=== PATIENT | female | born 1995 | race African-American/Black ===

== ENCOUNTER 2018-12-18 19:50 | Emergency (ER) | payer OTHER ==
[~2018-12-18] VITALS: Ht 154.9 cm; Wt 49.9 kg
[2018-12-18 21:37] VITALS: BP 121/92
[2018-12-18] MEDS ORDERED: methylPREDNISolone SOD SUCC 125 MG/2 ML VL IM ONE (22:15)
[2018-12-18] MEDS ORDERED: HYDROcodone-ACET 10/325MG TAB PO ONE (22:15)
[2018-12-18] MEDS ORDERED: cefTRIAXone SOD 1,000 MG VL IM ONE (22:15)
== END 2018-12-18 22:53 | disposition home or self-care (01) ==
LOC: ER 19:50
DX: K02.9 Dental caries, unspecified (principal); F12.90 Cannabis use, unspecified, uncomplicated
CPT/HCPCS: 96372; 99283; J2930; J0696

== ENCOUNTER 2021-06-08 12:20 | Emergency (ER) | payer MEDICAID, OTHER ==
[~2021-06-08] VITALS: Ht 154.9 cm; Wt 45.4 kg
[2021-06-08 14:33] VITALS: BP 114/73
[2021-06-08] MEDS ORDERED: ACETAMINOPHEN 325 MG TAB PO ONE ×2 (14:47→15:00)
== END 2021-06-08 15:05 | disposition home or self-care (01) ==
LOC: ER 12:20
DX: S40.022A Contusion of left upper arm, initial encounter (principal); S80.02XA Contusion of left knee, initial encounter; T14.8XXA Other injury of unspecified body region, initial encounter; M79.601 Pain in right arm; V49.49XA Driver injured in collision with other motor vehicles in traffic accident, initial encounter; Y93.89 Activity, other specified; Y92.89 Other specified places as the place of occurrence of the external cause; Y99.8 Other external cause status

== ENCOUNTER 2023-11-22 09:26 | Emergency (ER) | payer SELFPAY ==
[~2023-11-22] VITALS: Ht 157.5 cm; Wt 52.0 kg
[2023-11-22] MEDS ORDERED: PROCHLORPERAZINE EDISYLATE 5 MG/ML 2ML VIAL IV ONE (10:45)
[2023-11-22] MEDS ORDERED: SODIUM CHLORIDE 0.9% 1,000 ML IVB ONE (10:45)
[2023-11-22 11:18] LABS: Basophils # (auto) 0.1 10 ^3/uL (0-0.2); Basophils % (auto) 0.6 % (0.0-2.0); Eosinophils # (auto) 0 10 ^3/uL (0-0.8); Hematocrit 36.6 % (36.0-46.0); Hemoglobin 12.2 g/dL (12.2-16.2); Lymphocytes # (auto) 1.4 10 ^3/uL (0.4-5.4); Lymphocytes % (auto) 7.3 % (10.0-50.0); Mean Corpuscular Hemoglobin 30.3 pg (28.0-32.0); Mean Corpuscular Hgb Conc. 33.4 g/dL (32.0-36.0); Mean Corpuscular Volume 90.6 fL (80.0-100.0); Monocytes % (auto) 10.2 % (0.0-12.0); Neutrophils # (auto) 15.9 10 ^3/uL (1.6-8.6); Neutrophils % (auto) 81.9 % (37.0-80.0); Red Blood Cells 4.04 10^6/uL (4.0-5.20); Red Cell Distribution Width 14.3 % (11.8-14.3); White Blood Cell 19.3 10^3/uL (4.4-10.8)
[2023-11-22 11:19] VITALS: BP 132/77; TEMP 99.2
[2023-11-22 11:28] LABS: Chloride 101 mmol/L (98-107); Potassium 3.4 mmol/L (3.5-5.1); Sodium 130 mmol/L (136-145)
[2023-11-22 11:29] LABS: Anion Gap 9 (5-15); Calcium 9.3 mg/dL (8.5-10.1); Carbon Dioxide 20 mmol/L (20-30)
[2023-11-22 11:32] VITALS: PULSE 105; RESP 18; O2SAT 98
[2023-11-22 11:34] LABS: BUN/Creatinine Ratio 7.6 (10.0-20.0); Blood Urea Nitrogen 6 mg/dL (9-23); Glucose 99 mg/dL (74-106)
[2023-11-22 11:51] LABS: Urine Bacteria MANY /hpf (None Seen); Urine Blood 2+ /uL (Negative); Urine Clarity HAZY (Clear); Urine Color Yellow (Yellow); Urine Protein, UAD 2+ (Negative); Urine Specific Gravity 1.019 (1.001-1.035); Urine WBC 238 /hpf (0 - 5); Urine pH 6.5 (5.0-8.0)
[2023-11-22 11:52] LABS: Lipase 33 U/L (12-53); Magnesium 1.6 mg/dL (1.6-2.6)
[2023-11-22] MEDS ORDERED: LEVO500T91 PO (15:23)
[2023-11-22] MEDS ORDERED: ZOFR4T PO (15:23)
== END 2023-11-22 20:04 | disposition admitted as inpatient to this hospital (09) ==
LOC: ER 09:26
DX: N10 Acute pyelonephritis (principal); R10.2 Pelvic and perineal pain; B96.89 Other specified bacterial agents as the cause of diseases classified elsewhere; D72.828 Other elevated white blood cell count; M79.10 Myalgia, unspecified site; R11.10 Vomiting, unspecified; F15.90 Other stimulant use, unspecified, uncomplicated; Z79.899 Other long term (current) drug therapy
CPT/HCPCS: 36415; 71046; 80048; 81001; 83690; 83735; 84702; 85025; 96361; 96374; 99284; J0780; J7030